=== PATIENT | female | born 1950 | race Caucasian/White ===

== ENCOUNTER 2016-12-12 10:12 | Emergency (ER) | payer MEDICARE, OTHER ==
--- NOTE | 2016-12-12 11:08 | CT ---
HEAD CT WITHOUT CONTRAST: DATE: 12/12/16. HISTORY: Left lower extremity numbness. Pressure/tightness on the top of the left calf for 1 week. TECHNIQUE: Serial axial CT imaging at 5 mm intervals from vertex through the skull base without contrast. FINDINGS: The imaged paranasal sinuses and mastoid air cells are well aerated. There is no displaced calvaria l fracture, intracranial hemorrhage, midline shift, or mass effect. There is extensive periventricu lar deep and subcortical white matter hypodensity suggesting significant small-vessel disease. IMPRESSION: Findings suggest significant small-vessel disease. No intracranial hemorrhage. POS: [facility]
--- NOTE | 2016-12-12 12:42 | ULT ---
VENOUS DOPPLER ULTRASOUND OF THE LEFT LOWER EXTREMITY: Date: 12/12/16 HISTORY: Left lower extremity pain and numbness. TECHNIQUE: Thomason scale ultrasound with color flow and spectral Doppler imaging of the deep venous systems of the left lower extremity is performed. FINDINGS: There is good flow, compression, and augmentation noted in the left common femoral, femoral, deep fe moral, popliteal, posterior tibial, and greater saphenous veins. IMPRESSION: No evidence of deep venous thrombosis in the left lower extremity. POS: [facility]
== END 2016-12-12 12:55 | disposition home or self-care (01) ==
LOC: ERS 10:12
DX: G62.9 Polyneuropathy, unspecified (principal); E78.5 Hyperlipidemia, unspecified; I10 Essential (primary) hypertension; F32.9 Major depressive disorder, single episode, unspecified; Z79.82 Long term (current) use of aspirin; Z79.899 Other long term (current) drug therapy
CPT/HCPCS: 70450

== ENCOUNTER 2017-02-21 08:04 | Outpatient (CLI) | payer MEDICARE, OTHER ==
--- NOTE | 2017-02-21 09:21 | RAD ---
EXAM: LUMBAR SPINE FOUR VIEWS HISTORY: Lumbar radiculopathy. Bilateral foot numbness x a few months. COMPARISON: None. FINDINGS/IMPRESSION: AP, lateral neutral, lateral flexion, and lateral extension views of the lumbar spine demonstrate 5 l umbar-type vertebral bodies. Lumbar spine vertebral body heights are maintained. Disk space heights are preserved. In the neutral position, no significant spondylolisthesis. No abnormal translationa l motion upon extension or flexion. Minimal anterolisthesis of L4 upon L5 upon flexion likely due to position. POS: [facility]
--- NOTE | 2017-02-21 11:45 | MRI ---
LUMBAR SPINE MRI WITHOUT CONTRAST: HISTORY: Bilateral numbness for months. Lumbar radiculopathy. COMPARISON: None. TECHNIQUE: A lumbar spine MRI is performed without intravenous Gadolinium administration. Multisequential, mult iplanar imaging is performed. FINDINGS: There is appropriate T1 marrow signal intensity of the lumbar vertebrae. Lumbar spine vertebral body height is maintained. No fracture. No significant STIR hyperintensity to suggest edema or ligament ous injury. Limited signal intensity of the psoas muscles. Appropriate signal intensity of the visualized solid organs. The conus medullaris terminates at the L1-L2 disk space. T12-L1: No significant central canal stenosis or foraminal narrowing. L1-L2: Adequate disk hydration. No significant central canal stenosis or foraminal narrowing. L2-L3: Adequate disk hydration. No significant central canal stenosis or foraminal narrowing. L3-L4: Adequate disk hydration. No significant posterior risk abnormality. Mild ligamentum flavum thickening and facet hypertrophy. No significant central canal stenosis. The neural foramina are pa tent. L4-L5: Adequate disk hydration. No significant loss of disk space height. There is a T2 and STIR h yperintensity involving the left aspect of the disk, at the level of the neural foramen. There is an associated annular fissure with minimal disk protrusion. There is minimal narrowing of the left sub articular zone. The fissure is adjacent to the traversing left L5 nerve root in the subarticular zon e. There is no significant central canal stenosis. The right neural foramen is patent. Minimal lef t foraminal narrowing due to disk material. L5-S1: Adequate disk hydration. Minimal central and right subarticular disk bulge. No significant central canal stenosis. The neural foramina are patent. IMPRESSION: Annular fissure at L4-L5. The annular fissure abuts but does not obscure the traversing left L5 nerv e root. The annular fissure also extends into the left neural foramen and is adjacent to but does no t cause any mass effect upon the exiting left L4 nerve root. POS: [facility]
== END 2017-02-21 08:05 | disposition home or self-care (01) ==
LOC: TBSIIMAG 08:04
PROVIDERS: ATTEND Surgery
DX: M54.16 Radiculopathy, lumbar region (principal); Q05.7 Lumbar spina bifida without hydrocephalus
CPT/HCPCS: 72110; 72148

== ENCOUNTER 2019-12-12 09:55 | Outpatient (CLI) | payer MEDICARE ==
--- NOTE | 2019-12-12 12:36 | MRI ---
MRI LUMBAR SPINE WITHOUT CONTRAST: Date: 12/12/2019 INDICATION: Low back pain. Weakness in lower extremities. Comparison made to MRI lumbar spine of 02/21/2017. FINDINGS: The lumbar vertebra maintain normal height and alignment. Vertebral body signal is normally preserved . The disc spaces are normally maintained. L1-2: No significant disc bulge or protrusion. No central canal or foraminal stenosis. L2-3: No significant disc bulge. No central canal or foraminal stenosis. Minimal facet arthrosis. L3-4: Mild diffuse disc bulge is seen, similar to the prior study. Mild to moderate facet hypertroph y. Mild central canal stenosis. Mild left foraminal encroachment due to disc bulge. No significant fo raminal stenosis and no evidence of impingement on the exiting L3 nerve root. L4-5: The small annular fissure with asymmetric bulge on the left was described previously and is ag ain seen. This is not significantly changed in appearance. There is broad based bulge centrally kayli ening the thecal sac. Mild facet hypertrophy. Mild central canal stenosis which is similar to the robina or exam. No significant foraminal stenosis. L5-S1: No significant disc bulge or protrusion. No central canal or foraminal stenosis. IMPRESSION: Mild disc bulge at L3-4 and L4-5 are again seen. These are similar in appearance to the prior exam of 2017. There is mild central canal stenosis at these levels as described. POS: [facility]
== END 2019-12-12 09:56 | disposition home or self-care (01) ==
LOC: BICMRI 09:55
PROVIDERS: ATTEND Nurse Practitioner Acute Care
DX: M62.838 Other muscle spasm (principal); R29.898 Other symptoms and signs involving the musculoskeletal system; M48.061 Spinal stenosis, lumbar region without neurogenic claudication; M51.26 Other intervertebral disc displacement, lumbar region
CPT/HCPCS: 72148

== ENCOUNTER 2023-11-22 06:34 | Day surgery (SDC) | payer OTHER ==
[2023-11-21 12:24] VITALS: BMI 29.7
[2023-11-22] MEDS ORDERED: Propofol 1,000 MG/100 ML VIAL IV ONE (07:08)
== END 2023-11-22 09:13 | disposition home or self-care (01) ==
LOC: SDC 06:34
PROVIDERS: ATTEND Internal Medicine Gastroenterology
PROC: 0DBN8ZZ Excision of Sigmoid Colon, Via Natural or Artificial Opening Endoscopic (ICD-10-PCS; principal; 2023-11-22)
PROC: 0DJ08ZZ Inspection of Upper Intestinal Tract, Via Natural or Artificial Opening Endoscopic (ICD-10-PCS; 2023-11-22)
DX: Z12.11 Encounter for screening for malignant neoplasm of colon (principal); K63.5 Polyp of colon; K59.09 Other constipation; F41.9 Anxiety disorder, unspecified; M19.90 Unspecified osteoarthritis, unspecified site; I10 Essential (primary) hypertension; E78.00 Pure hypercholesterolemia, unspecified; Z90.710 Acquired absence of both cervix and uterus; Z90.49 Acquired absence of other specified parts of digestive tract; Z98.890 Other specified postprocedural states; Z79.82 Long term (current) use of aspirin; Z79.899 Other long term (current) drug therapy
CPT/HCPCS: 43235; 45385; J2704; 88305